=== PATIENT | male | born 1985 | race Caucasian/White ===

== ENCOUNTER 2025-03-11 19:20 | Emergency (ER) | payer OTHER ==
[2025-03-11 19:30] VITALS: BP 160/110; PULSE 114; RESP 18; TEMP 98.4; BMI 25.8
== END 2025-03-11 20:18 | disposition home or self-care (01) ==
LOC: JER 19:20
DX: F10.929 Alcohol use, unspecified with intoxication, unspecified (principal); Y90.9 Presence of alcohol in blood, level not specified; R00.0 Tachycardia, unspecified; R03.0 Elevated blood-pressure reading, without diagnosis of hypertension; F41.9 Anxiety disorder, unspecified
CPT/HCPCS: 82962; 99283-25